=== PATIENT | female | born 1955 | race American Indian/Alaskan Native ===

== ENCOUNTER 2022-07-14 10:15 | Emergency (ER) | payer MEDICARE ==
[2022-07-14 10:23] VITALS: BP 140/105
--- NOTE | 2022-07-14 12:23 | Emergency Department Report ---
ED Rash HPI - HPI Chief Complaint: Skin Rash Stated Complaint: ANT BITES Time Seen by Provider: 07/14/22 10:41 Duration: 2 Days Location: Upper Extremities Suspected Cause: Other Rash Symptoms: Yes Blistering, No Tongue/Oral Swelling, No Choking Sensation, No Wheezing/Dyspnea, No Peeling, No Fever Other History: 67-year-old female [facility] emerged department complaining of a vesiculopustular rash to the hands and spreading up to the arms of what she feels was secondary to ants. States that after noticing lesions on her arm she did see some ants in her car and thinks that may have been the culprit although last only area on the body when she is having symptoms. States that he has no fever, chills, sweats. ED Review of Systems ROS: Stated complaint: ANT BITES Other details as noted in HPI Comment: All other systems reviewed and negative ED Past Medical Hx - Past Medical History Previous Medical History?: Yes Hx Hypertension: Yes - Surgical History Past Surgical History?: Yes Additional Surgical History: - Social History Smoking Status: Current Every Day Smoker Substance Use Type: None - Medications Home Medications: Home Medications Medication Instructions Recorded Confirmed Last Taken Type Acetaminophen [Acetaminophen TAB] 1,000 mg PO Q6HR PRN #30 tablet 07/27/19 Unknown Rx Menthol/Camphor [[place] 1 applicatio TP QID PRN #1 tube 07/27/19 Unknown Rx Ointment] Nitrofurantoin [place]/M-Cryst 100 mg PO BID 7 Days #14 capsule 07/27/19 Unknown Rx [Macrobid CAP] Rash Exam - Exam General: Vital signs noted. No distress. Alert and acting appropriately. HEENT: No Periorbital Edema, No Conjuctival Injection, No Chemosis, No Perioral Edema, No Tongue Edema, No Uvular Edema, No Compromised Airway, No Drooling Lungs: Yes Good Air Exchange (Normal Breath Sounds), No Wheezes, No Ronchi, No Stridor, No Cough, No Labored Respirations, No Retractions, No Use of Accessory Muscles, No Other Abnormal Lung Sounds Heart: Yes Regular, No Murmur Skin: Yes Tenderness, Yes Erythema, Yes Edema (Erythematous vesicular rashes) Other: Positive: Abdomen Normal, Neurologic Normal, Musculoskeletal Normal ED Course Vital Signs 07/14/22 10:22 Temperature 98.1 F Pulse Rate 93 H Respiratory 18 Rate Blood Pressure 140/105 O2 Sat by Pulse 97 Oximetry ED Medical Decision Making - Medical Decision Making 67-year-old female [facility] department with a rash suspicious for multiplex. Outpatient follow-up with local health department to be tested and confirmed with multiplex and treat her positive symptoms until the time Critical care attestation.: If time is entered above; I have spent that time in minutes in the direct care of this critically ill patient, excluding procedure time. ED Disposition Clinical Impression: Vesicular rash Disposition: HOME / SELF CARE / HOMELESS Is pt being admited?: No Does the pt Need Aspirin: No Condition: Stable Additional Instructions: Your symptoms and findings today are very Concerning for monkey Pox. There are no treatments specifically for monkeypox virus infections. However, monkeypox and smallpox viruses are genetically similar, which means that antiviral drugs and vaccines developed to protect against smallpox may be used to prevent and treat monkeypox virus infections. Antivirals, such as tecovirimat (TPOXX), may be recommended for people who are more likely to get severely ill, like patients with weakened immune systems. Please follow-up with your local health department for confirmation of this very strong suspicion at which point in time if you had it at that has been confirmed further treatment options will be provided Referrals: [facility] [Outside] - 3-5 Days AMILCAR LAU MD [Primary Care Provider] - 3-5 Days
== END 2022-07-14 12:52 | disposition home or self-care (01) ==
LOC: ED 10:15
DX: R23.8 Other skin changes (principal); I10 Essential (primary) hypertension; F17.200 Nicotine dependence, unspecified, uncomplicated; Z98.890 Other specified postprocedural states
CPT/HCPCS: 99282